=== PATIENT | male | born 1995 | race Hispanic/Latino ===

== ENCOUNTER 2024-03-14 18:14 | Emergency (ER) | payer BC ==
[2024-03-14] MEDS ORDERED: KETOROLAC 30 MG/ML INJ ONE (18:39)
[2024-03-14] MEDS ORDERED: HYDROCODONE/APAP 7.5/325 MG TAB ONE (18:40)
[2024-03-14 19:48] LABS: Specific Gravity 1.018 (1.005-1.030); Sqamous Epithelial None Seen /HPF (None Seen); Urine Bacteria None Seen /HPF (<20); Urine Bilirubin NEGATIVE (Negative); Urine Blood Negative (Negative); Urine Clarity Clear (Clear); Urine Color Light-Yellow (Yellow); Urine Culture Reflex Order NOT NEEDED; Urine Glucose NEGATIVE (Negative); Urine Ketones TRACE (Negative); Urine Micro Reflex YN NO BILL MICROSCOPIC; Urine Mucus Slight /HPF (None Seen); Urine Nitrite NEGATIVE (Negative); Urine Protein NEGATIVE (Negative); Urine RBC <5 /HPF (None Seen); Urine Urobilinogen Normal (Normal); Urine WBC <5 /HPF (<5); Urine pH 7.5 (5.0-7.0)
[2024-03-14] MEDS ORDERED: LORAZEPAM 1 MG TABLET ONE (20:04)
--- NOTE | 2024-03-14 21:09 | RAD REPORT ---
EXAM DESCRIPTION: US - Scrotum Testicles - 03/14/2024 7:07 pm CLINICAL HISTORY: left testicle pain COMPARISON: No comparisons TECHNIQUE: Sonographic grayscale and color flow images of the scrotum were obtained. FINDINGS: The right testicle measures 3.9 x 2.3 x 2.1 cm. No intratesticular masses or evidence of t esticular torsion. The left testicle measures 3.9 x 2 x 2.5 cm. Incidentally noted calcified left testicular appendage. No intratesticular masses or evidence of testicular torsion. Both epididymides are normal in size and appearance. Small left hydrocele. IMPRESSION: Small left hydrocele. No other acute findings.
--- NOTE | 2024-03-14 21:32 | EDPHYS ---
Physician Documentation [facility] Name: Irineo Richards Age: 28 yrs Sex: Male : 1995 Arrival Date: 03/14/2024 Time: 18:14 Bed 20 Private MD: ED Physician Ismael Sidhu HPI: 03/14 18:45 This 28 yrs old Male presents to ER via Ambulatory with complaints of cp Testicular Swelling, Testicular Pain. 18:45 The patient presents with swelling, of the left testicle, tenderness, that is moderate, cp of the left testicle. Onset: The symptoms/episode began/occurred for over 1 week. Associated signs and symptoms: Pertinent negatives: dysuria, fever, hematuria. 18:45 Patient reports he was seen by family physician who prescribed Ciprofloxacin antibiotic cp and he was tested for sexually transmitted diseases that were negative. Historical: - Allergies: 18:33 No Known Allergies; iw - Home Meds: 18:33 None [Active]; iw - PMHx: 18:33 None; iw - PSHx: 18:33 Appendectomy; iw - Immunization history:: Adult Immunizations up to date. - Infectious Disease History:: Denies. - Social history:: Smoking status: Patient denies any tobacco usage or history of. ROS: 18:55 Constitutional: Negative for body aches, chills, fever, poor PO intake, cp 18:55 Eyes: Negative for injury, pain, redness, and discharge, cp 18:55 ENT: Negative for drainage from ear(s), ear pain, sore throat, difficulty swallowing, difficulty handling secretions, 18:55 Cardiovascular: Negative for chest pain, palpitations, 18:55 Respiratory: Negative for cough, shortness of breath, wheezing, 18:55 Abdomen/GI: Negative for vomiting, diarrhea, constipation, 18:55 Back: Negative for pain at rest, pain with movement, radiated pain, 18:55 : Positive for testicular pain Negative for urinary symptoms, hematuria, 18:55 Skin: Negative for rash, 18:55 All other systems are negative, Exam: 19:00 Constitutional: The patient appears in no acute distress, alert, awake, non-toxic, well cp developed, well nourished, uncomfortable, 19:00 Head/Face: Normocephalic, atraumatic. cp 19:00 Eyes: Periorbital structures: appear normal, Conjunctiva: normal, no exudate, no injection, Sclera: no appreciated abnormality, Lids and lashes: appear normal, bilaterally, 19:00 ENT: External ear(s): are unremarkable, Nose: is normal, Mouth: Lips: moist, Oral mucosa: pink and intact, moist, Posterior pharynx: Airway: no evidence of obstruction, patent, 19:00 Chest/axilla: Inspection: normal, 19:00 Cardiovascular: Rate: normal, Rhythm: regular, 19:00 Respiratory: the patient does not display signs of respiratory distress, Respirations: normal, no use of accessory muscles, no retractions, labored breathing, is not present, Breath sounds: are clear throughout, no decreased breath sounds, no stridor, no wheezing, 19:00 Abdomen/GI: Inspection: abdomen appears normal, Bowel sounds: active, all quadrants, Palpation: soft, in all quadrants, mild abdominal tenderness, in the left adnexal and right adnexal, rebound tenderness, is not appreciated, involuntary guarding, is not appreciated, 19:00 Back: CVA tenderness, is absent, cp 19:00 : Male external genitalia: swelling: of the left testicle is noted, that is mild, tenderness, of the left testicle is noted, that is moderate, Sexual behavior: the patient is sexually active, and reports a single partner, 19:00 Skin: cellulitis, is not appreciated, no rash present. Vital Signs: 18:29 BP 133 / 88; Pulse 72; Resp 16; Temp 98.4; Pulse Ox 100% on R/A; Weight 68.04 kg; iw Height 5 ft. 6 in. ; Pain 2/10; 19:00 BP 130 / 78; Pulse 83; Resp 16; Temp 98; Pulse Ox 98% ; Pain 1/10; pf1 20:00 BP 132 / 76; Pulse 87; Resp 16; Pulse Ox 100% on R/A; Pain 1/10; pf1 21:00 BP 135 / 88; Pulse 72; Resp 16; Pulse Ox 100% on R/A; Pain 0/10; pf1 22:00 BP 140 / 89; Pulse 78; Resp 16; Temp 98.1; Pulse Ox 100% on R/A; Pain 0/10; pf1 18:29 Body Mass Index 24.21 (68.04 kg, 167.64 cm) iw 18:29 Pain Scale: Adult iw 19:00 Pain Scale: Adult pf1 20:00 Pain Scale: Adult pf1 21:00 Pain Scale: Adult pf1 22:00 Pain Scale: Adult pf1 MDM: 18:26 Patient medically screened. 19:00 Differential diagnosis: appendicitis, UTI, urinary retention, prostatitis, urethritis, cp epididymitis, orchitis, testicular torsion. 21:30 Data reviewed: vital signs, nurses notes, lab test result(s), radiologic studies, cp ultrasound. 21:30 I considered the following discharge prescriptions or medication management in the emergency department Medications were administered in the Emergency Department. See MAR. Counseling: I had a detailed discussion with the patient and/or guardian regarding the historical points, exam findings, and any diagnostic results supporting the discharge/admit diagnosis, lab results, radiology results, the need for outpatient follow up, a urologist, to return to the emergency department if symptoms worsen or persist or if there are any questions or concerns that arise at home. Response to treatment: the patient's symptoms have mildly improved after treatment, and as a result, I will discharge patient. 03/14 18:34 Order name: Urinalysis W/Microscopic; Complete Time: 20:02 03/14 20:02 Interpretation: Reviewed. 03/14 18:34 Order name: GC (Dalton/Chl) Probe URINE 03/14 18:34 Order name: US Scrotum Testicles; Complete Time: 21:22 Administered Medications: 18:34 Drug: Ketorolac IM 30 mg IM once Route: IM; Site: left deltoid; rs5 19:30 Follow up: Response: No adverse reaction; Marked relief of symptoms; Pain is decreased pf1 18:34 Drug: Hydrocodone-Acetaminophen PO (7.5 mg-325 mg) 1 tabs PO once; RASS on ADMIN: rs5 Combtv4, Very Agttd3, Agttd2, Rstlss1, AlertClm0, Drwsy-1, Lt Sdtn-2, Mod Sdtn-3, Dp Sdtn-4, UnArsble-5 Route: PO; 19:30 Follow up: Response: No adverse reaction; Marked relief of symptoms; Pain is decreased; pf1 RASS: Alert and Calm (0) 20:08 Drug: LORazepam PO 1 mg PO once Route: PO; pf1 21:00 Follow up: Response: No adverse reaction; Marked relief of symptoms; Anxiety decreased pf1 22:05 Drug: Rocephin (cefTRIAXone) IM 250 mg IM once Route: IM; Site: right ventrogluteal; pf1 22:28 Follow up: Response: No adverse reaction pf1 22:05 Drug: AZITHromycin PO 1 grams PO once Route: PO; pf1 22:28 Follow up: Response: No adverse reaction; Marked relief of symptoms pf1 Disposition: 03/15 22:10 Co-signature as Attending Physician, Ismael Sidhu MD I agree with the assessment and susan plan of care. Disposition Summary: 03/14/24 21:32 Discharge Ordered Notes: Location: Home cp Problem: new cp Symptoms: have improved cp Condition: Stable cp Diagnosis - Hydrocele, unspecified - left cp - Left testicular pain cp Followup: cp - With: Antonio Car MD - When: 2 - 3 days - Reason: Recheck today's complaints Discharge Instructions: - Discharge Summary Sheet cp - Hydrocele, Adult cp Forms: - Medication Reconciliation Form cp - Antibiotic Education cp - Prescription Opioid Use cp - Patient Portal Instructions cp - Leadership Thank You Letter cp Prescriptions: - Diclofenac Sodium 75 mg Oral Tablet Sustained Release - take 1 tablet ORAL route 2 times per day; 30 tablet; Refills: 0, Product cp Selection Permitted - Doxycycline Monohydrate 100 mg Oral Tablet - take 1 tablet ORAL route every 12 hours for 10 days; 20 tablet; Refills: 0, cp Product Selection Permitted Signatures: Dispatcher [employer] Ismael Choudhury MD MD cha Williams, Irene, RN RN iw Page, Corey, PA PA cp Justina Samson RN RN pf1 Sushil Hall RN RN rs5 Corrections: (The following items were deleted from the chart) 03/14 18:35 18:35 Urinalysis W/Microscopic+U.LAB.BRZ ordered. EDMS EDMS 18:35 18:35 GC (Dalton/Chl) Probe URINE+R.LAB.BRZ ordered. EDMS EDMS
--- NOTE | 2024-03-14 21:32 | ER ---
Nurse's Notes [facility] Name: Irineo Richards Age: 28 yrs Sex: Male : 1995 Arrival Date: 03/14/2024 Time: 18:14 Bed 20 Private MD: Diagnosis: Hydrocele, unspecified-left;Left testicular pain Presentation: 03/14 18:29 Chief complaint: Patient states: left testicular pain since last Thursday , has been on antibiotics for UTI but his PCP told him hi urine was clean, was sent to ER for US. Coronavirus screen: At this time, the client does not indicate any symptoms associated with coronavirus-19. Ebola Screen: Patient negative for fever greater than or equal to 101.5 degrees Fahrenheit, and additional compatible Ebola Virus Disease symptoms Patient denies exposure to infectious person. Patient denies travel to an Ebola-affected area in the 21 days before illness onset. No symptoms or risks identified at this time. Initial Sepsis Screen: Does the patient meet any 2 criteria? No. Patient's initial sepsis screen is negative. Does the patient have a suspected source of infection? No. Patient's initial sepsis screen is negative. Risk Assessment: Do you want to hurt yourself or someone else? Patient reports no desire to harm self or others. 18:29 Method Of Arrival: Ambulatory iw 18:29 Acuity: HELDER 3 iw Historical: - Allergies: 18:33 No Known Allergies; iw - Home Meds: 18:33 None [Active]; iw - PMHx: 18:33 None; iw - PSHx: 18:33 Appendectomy; iw - Immunization history:: Adult Immunizations up to date. - Infectious Disease History:: Denies. - Social history:: Smoking status: Patient denies any tobacco usage or history of. Screenin:23 [facility] ED Fall Risk Assessment (Adult) History of falling in the last 3 months, rs5 including since admission No falls in past 3 months (0 pts) Confusion or Disorientation No (0 pts) Intoxicated or Sedated No (0 pts) Impaired Gait No (0 pts) Mobility Assist Device Used No (0 pt) Altered Elimination No (0 pt) Score/Fall Risk Level 0 - 2 = Low Risk Oriented to surroundings, Maintained a safe environment. Abuse screen: Denies threats or abuse. Nutritional screening: No deficits noted. Tuberculosis screening: No symptoms or risk factors identified. Assessment: 18:23 General: Appears uncomfortable, Behavior is cooperative. Pain: Complains of pain in rs5 left testical Pain currently is 8 out of 10 on a pain scale. Quality of pain is described as aching, Is continuous. Neuro: Level of Consciousness is awake, alert, obeys commands, Oriented to person, place, time, situation. Cardiovascular: Patient's skin is warm and dry. Rhythm is regular. Respiratory: Airway is patent Respiratory effort is even, unlabored, Respiratory pattern is regular, symmetrical. GI: Abdomen is round non-distended, Abd is soft and non tender X 4 quads. : No signs and/or symptoms were reported regarding the genitourinary system. EENT: No signs and/or symptoms were reported regarding the EENT system. Derm: Skin is intact, Skin is pink, warm \T\ dry. Musculoskeletal: Range of motion: intact in all extremities. 18:58 Reassessment: Patient and/or family updated on plan of care and expected duration. Pain rs5 level reassessed. Patient is alert, oriented x 3, equal unlabored respirations, skin warm/dry/pink. 19:00 Reassessment:. General: Appears in no apparent distress. uncomfortable, well groomed, pf1 well developed, Behavior is cooperative, appropriate for age, anxious, quiet. Pain: Complains of pain in left testicular pain. Neuro: No deficits noted. Level of Consciousness is awake, alert, obeys commands, Oriented to person, place, time, situation. Cardiovascular: No deficits noted. Capillary refill < 3 seconds Patient's skin is warm and dry. Respiratory: No deficits noted. Airway is patent Respiratory effort is even, unlabored, Respiratory pattern is regular, symmetrical. GI: No deficits noted. Abdomen is flat, non-distended, Abd is soft and non tender X 4 quads. : Reports left testicular pain,onset 9 days with swelling and redness. 19:00 EENT: No deficits noted. No signs and/or symptoms were reported regarding the EENT pf1 system. Derm: No deficits noted. No signs and/or symptoms reported regarding the dermatologic system. Musculoskeletal: No deficits noted. No signs and/or symptoms reported regarding the musculoskeletal system. 20:11 Reassessment: Patient appears in no apparent distress at this time. Patient and/or pf1 family updated on plan of care and expected duration. Pain level reassessed. Patient is alert, oriented x 3, equal unlabored respirations, skin warm/dry/pink. Patient states feeling better. Patient states symptoms have improved. 21:00 Reassessment: Patient appears in no apparent distress at this time. Patient and/or pf1 family updated on plan of care and expected duration. Pain level reassessed. Patient is alert, oriented x 3, equal unlabored respirations, skin warm/dry/pink. 21:50 Reassessment: patient to be discharged after medications given and shot time. pf1 22:00 Reassessment: Patient appears in no apparent distress at this time. Patient and/or pf1 family updated on plan of care and expected duration. Pain level reassessed. Patient is alert, oriented x 3, equal unlabored respirations, skin warm/dry/pink. Vital Signs: 18:29 BP 133 / 88; Pulse 72; Resp 16; Temp 98.4; Pulse Ox 100% on R/A; Weight 68.04 kg; iw Height 5 ft. 6 in. ; Pain 2/10; 19:00 BP 130 / 78; Pulse 83; Resp 16; Temp 98; Pulse Ox 98% ; Pain 1/10; pf1 20:00 BP 132 / 76; Pulse 87; Resp 16; Pulse Ox 100% on R/A; Pain 1/10; pf1 21:00 BP 135 / 88; Pulse 72; Resp 16; Pulse Ox 100% on R/A; Pain 0/10; pf1 22:00 BP 140 / 89; Pulse 78; Resp 16; Temp 98.1; Pulse Ox 100% on R/A; Pain 0/10; pf1 18:29 Body Mass Index 24.21 (68.04 kg, 167.64 cm) iw 18:29 Pain Scale: Adult iw 19:00 Pain Scale: Adult pf1 20:00 Pain Scale: Adult pf1 21:00 Pain Scale: Adult pf1 22:00 Pain Scale: Adult pf1 ED Course: 18:18 Patient arrived in ED. mr 18:18 Ismael Alex PA is PHCP. cp 18:18 Ismael Sidhu MD is Attending Physician. cp 18:23 Patient has correct armband on for positive identification. Placed in gown. Bed in low rs5 position. Call light in reach. Side rails up X2. 18:23 No provider procedures requiring assistance completed. rs5 18:33 Triage completed. iw 18:35 Sushil Hall, EDYTA is Primary Nurse. rs5 19:00 Arm band placed on right wrist. pf1 19:09 Scrotum Testicles In Process Unspecified. EDMS 21:31 Antonio Car MD is Referral Physician. cp 22:09 Patient did not have IV access during this emergency room visit. pf1 22:29 Provided Education on: prescriptions and follow up. pf1 Administered Medications: 18:34 Drug: Ketorolac IM 30 mg IM once Route: IM; Site: left deltoid; rs5 19:30 Follow up: Response: No adverse reaction; Marked relief of symptoms; Pain is decreased pf1 18:34 Drug: Hydrocodone-Acetaminophen PO (7.5 mg-325 mg) 1 tabs PO once; RASS on ADMIN: rs5 Combtv4, Very Agttd3, Agttd2, Rstlss1, AlertClm0, Drwsy-1, Lt Sdtn-2, Mod Sdtn-3, Dp Sdtn-4, UnArsble-5 Route: PO; 19:30 Follow up: Response: No adverse reaction; Marked relief of symptoms; Pain is decreased; pf1 RASS: Alert and Calm (0) 20:08 Drug: LORazepam PO 1 mg PO once Route: PO; pf1 21:00 Follow up: Response: No adverse reaction; Marked relief of symptoms; Anxiety decreased pf1 22:05 Drug: Rocephin (cefTRIAXone) IM 250 mg IM once Route: IM; Site: right ventrogluteal; pf1 22:28 Follow up: Response: No adverse reaction pf1 22:05 Drug: AZITHromycin PO 1 grams PO once Route: PO; pf1 22:28 Follow up: Response: No adverse reaction; Marked relief of symptoms pf1 Medication: 18:37 VIS not applicable for this client. rs5 Outcome: 21:32 Discharge ordered by . cp 22:28 Discharged to home ambulatory, with family, pf1 22:28 Condition: improved 22:28 Discharge instructions given to patient, family, Instructed on discharge instructions, follow up and referral plans. Demonstrated understanding of instructions, follow-up care, medications, Prescriptions given X 2, 22:29 Patient left the ED. pf1 Signatures: Dispatcher [employer] EDMS MamadouLiliana, Reg Reg mr Linda Villanueva, RN RN iw Ismael Alex PA PA cp Finley, Pamala, RN RN pf1 Sushil Hall RN RN rs5
[2024-03-14] MEDS ORDERED: CEFTRIAXONE 250 MG/VIAL ONE (21:58)
[2024-03-14] MEDS ORDERED: LIDOCAINE 1% MPF 2 ML AMPULE ONE (21:58)
[2024-03-14] MEDS ORDERED: AZITHROMYCIN 250 MG TAB ONE (21:58)
[2024-03-14 23:07] VITALS: BP 140/89; TEMP 98.1; O2SAT 100
[2024-03-17 14:17] LABS: C.trachomatis RNA,TMA Not Detected (Not Detected); N.gonorrhoeae RNA,TMA Not Detected (Not Detected)
== END 2024-03-14 22:29 | disposition home or self-care (01) ==
LOC: ER 18:14
DX: N43.3 Hydrocele, unspecified (principal)
CPT/HCPCS: 81001; 87590; 87490; 76870; 96372; 99284; J0696

== ENCOUNTER 2024-04-26 23:36 | Emergency (ER) | payer BC ==
[2024-04-27] MEDS ORDERED: DIAZEPAM 10 MG/2 ML INJ SYRINGE ONE (00:05)
[2024-04-27 00:38] LABS: Absolute Eosinophils 0.1 K/uL (0-0.5); Absolute Lymphocytes (CBC) 3.6 K/uL (0.7-4.9); Absolute Monocytes 0.8 K/uL (0.1-1.3); Absolute Neutrophil 3.5 K/uL (1.8-8.0); Basophils % 0.6 % (0-1.3); Eosinophils % 1.7 % (0-4.4); Hematocrit 46.7 % (39.6-49.0); Hemoglobin 15.8 g/dL (13.6-17.9); Lymphocytes % 44.4 % (15.3-44.8); MCH 27.9 pg (27.0-35.0); MCHC 33.7 g/dL (32.0-36.0); MCV 82.7 fL (80-100); MPV 8.5 fL (7.6-11.3); Neutrophils % 43.3 % (41.7-73.7); Nucleated Red Blood Cells % 0.1 % (0-0); Platelets 172 thou/uL (152-406); RBC Red Blood Cell Count 5.65 M/uL (4.33-5.43); Red Cell Distribution Width 14.6 % (12.1-15.2)
[2024-04-27 01:08] LABS: ALT/SGPT 23 U/L (16-61); Albumin 4.3 g/dL (3.4-5.0); Albumin/Globulin Ratio 1.2 (1.1-1.8); Alkaline Phosphatase 99 U/L (45-117); Anion Gap 14.8 mEq/L (5.0-15.0); BUN Blood Urea Nitrogen 18 mg/dL (7-18); Bicarbonate 17 mEq/L (21-32); Bilirubin Total 0.6 mg/dL (0.2-1.0); Globulin 3.7 g/dL (2.3-3.5); Glomerular Filtration Rate 78 ml/min (=/>90); Glucose Level 124 mg/dL (74-106); Potassium 2.8 mEq/L (3.5-5.1); Sodium Level 136 mEq/L (136-145)
[2024-04-27 01:09] LABS: AST/SGOT < 10 U/L (15-37); Bilirubin Direct < 0.2 mg/dL (0-0.2); Bilirubin Indirect, Calculated 0.4 mg/dL (0.2-0.8)
--- NOTE | 2024-04-27 02:05 | ER ---
Nurse's Notes [facility] Name: Irineo Richards Age: 28 yrs Sex: Male : 1995 Arrival Date: 04/26/2024 Time: 23:36 Bed 15 Private MD: Diagnosis: Anxiety disorder, unspecified;Acute panic attack Presentation: 04/26 23:45 Chief complaint: Patient states: legs felt heavy in the shower, heart beating fast. tm6 23:45 Method Of Arrival: Ambulatory tm6 23:55 Coronavirus screen: Vaccine status: Patient reports receiving the 2nd dose of the covid tm6 vaccine. Ebola Screen: Patient negative for fever greater than or equal to 101.5 degrees Fahrenheit, and additional compatible Ebola Virus Disease symptoms Patient denies exposure to infectious person. Patient denies travel to an Ebola-affected area in the 21 days before illness onset. No symptoms or risks identified at this time. Initial Sepsis Screen: Does the patient meet any 2 criteria? RR > 20 per min. HR > 90 bpm. Does the patient have a suspected source of infection? No. Patient's initial sepsis screen is negative. Risk Assessment: Do you want to hurt yourself or someone else? Patient reports no desire to harm self or others. Onset of symptoms was April 26, 2024. 23:55 Acuity: HELDER 3 tm6 Triage Assessment: 23:55 General: Appears distressed, Behavior is cooperative, anxious. Pain: Denies pain. tm6 Neuro: Level of Consciousness is awake, alert, obeys commands, Oriented to person, place, time, situation. Cardiovascular: Reports "heart racing" Patient's skin is warm and dry. Rhythm is sinus tachycardia. Respiratory: Airway is patent Respiratory effort is even, unlabored, Respiratory pattern is tachypnea. Historical: - Allergies: 23:55 No Known Allergies; tm6 - PMHx: 23:55 None; tm6 - PSHx: 23:55 Appendectomy; tm6 - Immunization history:: Client reports receiving the 2nd dose of the Covid vaccine. - Infectious Disease History:: Denies. - Social history:: Smoking status: Patient denies any tobacco usage or history of. Patient/guardian denies using alcohol, street drugs. - Family history:: not pertinent. Assessment: 23:59 General: Appears in no apparent distress. uncomfortable, Behavior is cooperative, jb4 anxious. Pain: Denies pain. Neuro: Level of Consciousness is awake, alert, obeys commands, Oriented to person, place, time, situation. Cardiovascular: Patient's skin is warm and dry. Respiratory: Airway is patent Respiratory effort is even, unlabored, Respiratory pattern is regular, symmetrical. Musculoskeletal: Circulation, motion, and sensation intact. Range of motion: intact in all extremities. Vital Signs: 23:45 BP 146 / 88; Pulse 124; Resp 25; Temp 97.2(TE); Pulse Ox 100% on R/A; MAP 97 mmHg; tm6 Weight 68.04 kg (R); Height 5 ft. 6 in. (R); Pain 0/10; 23:45 Body Mass Index 24.21 (68.04 kg, 167.64 cm) tm6 23:45 Pain Scale: Adult tm6 Bryant Coma Score: 04/27 04:16 Eye Response: spontaneous(4). Motor Response: obeys commands(6). Verbal Response: sp4 oriented(5). Total: 15. ED Course: 04/26 23:38 Patient arrived in ED. ra3 23:53 Brice Teixeira MD is Attending Physician. sp4 23:55 Triage completed. tm6 23:55 Arm band placed on right wrist. tm6 23:57 EKG done, by ED staff, reviewed by Brice Teixeira MD. tm6 06/ 00:14 Basic Metabolic Panel Sent. jb4 00:14 CBC with Diff Sent. jb4 00:14 LFT's Sent. jb4 00:14 TSH Sent. jb4 00:14 T4 Free Sent. jb4 Administered Medications: 00:14 Drug: Diazepam IVP 10 mg IVP once Route: IVP; Site: right antecubital; jb4 Outcome: 02:04 Discharge ordered by . sp4 02:26 Discharged to home ambulatory, jb4 02:26 Condition: stable 02:26 Discharge instructions given to patient, Instructed on discharge instructions, follow up and referral plans. no drinking with medication, no driving heavy equipment, medication usage, Demonstrated understanding of instructions, follow-up care, medications, Prescriptions given X 1, 02:26 Patient left the ED. jb4 Signatures: Kd De La Rosa RN RN Brice Jacobson MD MD sp4 Elaine Baltazar, EDYTA RN tm6 Effie Cornejo ra3
--- NOTE | 2024-04-27 02:05 | EDPHYS ---
Physician Documentation [facility] Name: Irineo Richards Age: 28 yrs Sex: Male : 1995 Arrival Date: 04/26/2024 Time: 23:36 Bed 15 Private MD: ED Physician Brice Teixeira HPI: 04/26 23:54 This 28 yrs old Male presents to ER via Ambulatory with complaints of Anxiety. sp4 04/27 04:16 28-year-old male presents with acute onset of anxiety also rapid heart rate feeling sp4 unwell jitters and tremors. This was unprovoked. . Historical: - Allergies: 04/26 23:55 No Known Allergies; tm6 - PMHx: 23:55 None; tm6 - PSHx: 23:55 Appendectomy; tm6 - Immunization history:: Client reports receiving the 2nd dose of the Covid vaccine. - Infectious Disease History:: Denies. - Social history:: Smoking status: Patient denies any tobacco usage or history of. Patient/guardian denies using alcohol, street drugs. - Family history:: not pertinent. ROS: 04/27 04:16 Constitutional: Negative for fever, chills, and weight loss, positive rapid heart rate, sp4 positive anxiety, positive discomfort , positive elevated blood pressure All other systems are negative, Exam: 04:16 Constitutional: This is a well developed, well nourished patient who is awake, alert, sp4 anxious appearing male with tachycardia and hyperventilation. Head/Face: Normocephalic, atraumatic. Eyes: Pupils equal round and reactive to light, extra-ocular motions intact. Lids and lashes normal. Conjunctiva and sclera are not injected. Cornea within normal limits. Periorbital areas with no swelling, redness, or edema. ENT: Nares patent. No nasal discharge, no septal abnormalities noted. Tympanic membranes are normal and external auditory canals are clear. Oropharynx with no redness, swelling, or masses, exudates, or evidence of obstruction, uvula midline. Mucous membranes moist. Neck: Trachea midline, no thyromegaly or masses palpated, and no cervical lymphadenopathy. Supple, full range of motion without nuchal rigidity, or vertebral point tenderness. Chest/axilla: Normal chest wall appearance and motion. Nontender with no deformity. No lesions are appreciated. Cardiovascular: Regular tachycardia, no gallops, murmurs, or rubs. Normal PMI, no JVD. No pulse deficits. Respiratory: Lungs have equal breath sounds bilaterally, clear to auscultation and percussion. No rales, rhonchi or wheezes noted. No increased work of breathing, no retractions or nasal flaring. Abdomen/GI: Soft, with normal bowel sounds. No distension or tympany. No guarding or rebound. No evidence of tenderness throughout. Back: No spinal tenderness. No costovertebral tenderness. Skin: Warm, dry with normal turgor. Normal color with no rashes, no lesions, and no evidence of cellulitis. MS/ Extremity: Pulses equal, no cyanosis. Neurovascular intact. Full, normal range of motion. Neuro: Awake and alert, GCS 15, oriented to person, place, time, and situation. Cranial nerves II-XII grossly intact. Motor strength 5/5 in all extremities. Sensory grossly intact. Psych: Awake, alert, with orientation to person, place and time, anxious appearing male with generalized tremors. 04:16 ECG was reviewed by the Attending Physician. EKG reviewed with sinus tachycardia at the rate of 116, EKG time 2352. Vital Signs: 04/26 23:45 BP 146 / 88; Pulse 124; Resp 25; Temp 97.2(TE); Pulse Ox 100% on R/A; MAP 97 mmHg; tm6 Weight 68.04 kg (R); Height 5 ft. 6 in. (R); Pain 0/10; 23:45 Body Mass Index 24.21 (68.04 kg, 167.64 cm) tm6 23:45 Pain Scale: Adult tm6 [place] Coma Score: 04/27 04:16 Eye Response: spontaneous(4). Motor Response: obeys commands(6). Verbal Response: sp4 oriented(5). Total: 15. MDM: 00:46 Patient medically screened. sp4 04:18 Differential Diagnosis altered mental status, sepsis, flu, Anxiety . Data reviewed: sp4 vital signs, nurses notes, lab test result(s), CBC, electrolytes, hepatic panel. ED course: Patient much improved after some IV Valium. At this time no sign of acute emergent condition. Most likely anxiety attack. Will prescribe as needed Valium. 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 04/27 00:05 Order name: Basic Metabolic Panel; Complete Time: :58 sp4 04/27 00:05 Order name: CBC with Diff; Complete Time: sp4 04/27 00:05 Order name: LFT's; Complete Time: :58 sp4 04/27 00:05 Order name: TSH; Complete Time: : sp4 04/27 00:05 Order name: T4 Free; Complete Time: : sp4 04/27 00:05 Order name: EKG; Complete Time: 00:05 sp4 04/27 00:05 Order name: Cardiac monitoring; Complete Time: 00:08 sp4 04/27 00:05 Order name: EKG - Nurse/Tech; Complete Time: 00:08 sp4 04/27 00:05 Order name: IV Saline Lock; Complete Time: 00:14 sp4 04/27 00:05 Order name: Labs collected and sent; Complete Time: 00:14 sp4 EC:16 Rate is 116 beats/min. Rhythm is regular, Sinus tachycardia. QRS [place] is Normal. MS sp4 interval is normal. QRS interval is normal. QT interval is normal. No Q waves. T waves are Normal. No ST changes noted. Clinical impression: No evidence of ischemia. Interpreted by me. Reviewed by me. Administered Medications: 00:14 Drug: Diazepam IVP 10 mg IVP once Route: IVP; Site: right antecubital; jb4 Disposition: 04:21 Chart complete. sp4 Disposition Summary: 04/27/24 02:04 Discharge Ordered Notes: Location: Home sp4 Problem: new sp4 Symptoms: have improved sp4 Condition: Stable sp4 Diagnosis - Anxiety disorder, unspecified sp4 - Acute panic attack sp4 Followup: sp4 - With: Private Physician - When: 7 - 10 days - Reason: Recheck today's complaints Discharge Instructions: - Discharge Summary Sheet sp4 - Panic Attack sp4 Forms: - Patient Portal Instructions sp4 Prescriptions: - Valium 5 mg Oral tablet - take 1 tablet ORAL route once daily As needed PRN anxiety; 20 tablet; Refills: sp4 0, Product Selection Permitted Signatures: Dispatcher [employer] EDKd oMntenegro RN RN jb4 Brice Teixeira MD MD sp4 Elaine Baltazar RN RN tm6 Corrections: (The following items were deleted from the chart) 00:06 00:05 BASIC METABOLIC PANEL+C.LAB.BRZ ordered. EDMS EDMS 00:06 00:05 CBC+H.LAB.BRZ ordered. EDMS EDMS 00:06 00:05 HEPATIC FUNCTION+C.LAB.BRZ ordered. EDMS EDMS
[2024-04-27 02:30] VITALS: BP 146/88; TEMP 97.2; O2SAT 100
--- NOTE | 2024-04-28 12:13 | EKG ---
Test Date: 2024-04-26 Test Time: 23:52:17 Fur Clipper: SHERYL MEASUREMENT RESULTS: Intervals: Rate: 116 MT: 172 QRSD: 90 QT: 302 QTc: 419 [place]: P: 111 MT: 172 QRS: 78 T: 124 INTERPRETIVE STATEMENTS: Sinus tachycardia Lateral infarct, age undetermined Abnormal ECG No previous ECG available for comparison Electronically Signed On 04-28-24 12:12:59 CDT by Valdemar Jackson
== END 2024-04-27 02:26 | disposition home or self-care (01) ==
LOC: ER 23:36
DX: F41.0 Panic disorder [episodic paroxysmal anxiety] (principal); F41.9 Anxiety disorder, unspecified
CPT/HCPCS: 93005; 85025; 80048; 36415; 80076; 84443; 84439; 96374; 99284; J3360